=== PATIENT | female | born 1995 | race Caucasian/White ===

== ENCOUNTER 2020-02-04 15:23 | Emergency (ER) | payer OTHER ==
[2020-02-04 16:19] LABS: Basophils % 0.4 % (0-1.3); Hematocrit 36.3 % (36.0-45.0); Lymphocytes % 34.7 % (15.3-44.8); MPV 7.3 fL (7.6-11.3); RBC Red Blood Cell Count 4.43 M/uL (3.86-4.86)
--- NOTE | 2020-02-04 16:20 | RAD REPORT ---
EXAM DESCRIPTION: RAD - Chest Single View - 02/04/2020 3:58 pm CLINICAL HISTORY: Palpitations;Chest pain TECHNIQUE: AP portable chest image was obtained 02/04/2020 3:58 pm . FINDINGS: Lungs are clear. Heart and vasculature are normal. No measurable pleural effusion and no p neumothorax. No acute bony abnormality seen. No acute aortic findings suspected. IMPRESSION: No acute cardiopulmonary process.
[2020-02-04 16:22] LABS: Protime INR 1.04
[2020-02-04 16:56] LABS: Barbiturates NEGATIVE (NEGATIVE); Benzodiazepines NEGATIVE (NEGATIVE); Cocaine NEGATIVE (NEGATIVE); METHAMPHETAM NEGATIVE (NEGATIVE); Methadone NEGATIVE (NEGATIVE); Opiates NEGATIVE (NEGATIVE); Phencyclidine NEGATIVE (NEGATIVE); THC Cannibis NEGATIVE (NEGATIVE)
[2020-02-04 17:05] LABS: ALT/SGPT 43 U/L (12-78); AST/SGOT 24 U/L (15-37); Albumin 3.4 g/dL (3.4-5.0); Alkaline Phosphatase 63 U/L (45-117); BUN Blood Urea Nitrogen 5 mg/dL (7-18); Bicarbonate 27 mmol/L (21-32); Bilirubin Direct 0.1 mg/dL (0-0.2); Bilirubin Total 0.3 mg/dL (0.2-1.0); Glucose Level 105 mg/dL (74-106); Magnesium 1.8 mg/dL (1.8-2.4); NT PRO-BNP 450 pg/mL (<125); Potassium 3.9 mmol/L (3.5-5.1); Protein, Total 6.8 g/dL (6.4-8.2); Sodium Level 140 mmol/L (136-145); Troponin (Emerg Dept Use Only) < 0.02 ng/mL (0.0-0.045)
[2020-02-04 17:26] LABS: Thyroid Stimulating Hormone < 0.005 uIU/mL (0.360-3.740)
--- NOTE | 2020-02-04 17:49 | ER ---
Nurse's Notes [facility] Name: Mayra Talamantes Age: 24 yrs Sex: Female : 1995 Arrival Date: 02/04/2020 Time: 15:24 Bed 16 Private MD: Diagnosis: Palpitations;Hyperthyroidism;Chest pain, unspecified Presentation: 02/03 15:27 Chief complaint: Patient states: palpitations x 1 month, Today while at work felt like sv she was running a mile while running up and down the stairs. Coronavirus screen: Client denies travel out of the [place] in the last 14 days. At this time, the client does not indicate any symptoms associated with coronavirus-19. Ebola Screen: No symptoms or risks identified at this time. Risk Assessment: Do you want to hurt yourself or someone else? Patient reports no desire to harm self or others. Onset of symptoms is unknown. 15:27 Method Of Arrival: Ambulatory sv 15:27 Acuity: SHERRI 2 sv 15:30 Initial Sepsis Screen: Does the patient meet any 2 criteria? HR > 90 bpm. Yes Does the sv patient have a suspected source of infection? No. Patient's initial sepsis screen is negative. 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 - Social history:: Smoking status: Reported history of juuling and/or vaping. Screenin:42 Abuse screen: Denies threats or abuse. Denies injuries from another. Nutritional ph screening: No deficits noted. Tuberculosis screening: No symptoms or risk factors identified. Fall Risk None identified. Assessment: 16:10 General: Appears in no apparent distress. comfortable, slender, well groomed, Behavior ph is calm, cooperative, appropriate for age, Denies fever, feeling ill. Pain: Denies pain. Neuro: Level of Consciousness is awake, alert, obeys commands, Oriented to person, place, time, situation. Cardiovascular: Reports chest pain, lightheadedness, palpitations, shortness of breath, since Intermittent x approx 1 month, denies pain at this time Denies diaphoresis, syncope, vomiting, Rhythm is regular. Respiratory: Reports shortness of breath on exertion Airway is patent Respiratory effort is even, unlabored, Respiratory pattern is regular, symmetrical. GI: No signs and/or symptoms were reported involving the gastrointestinal system. Derm: Skin is intact, is healthy with good turgor, Skin is pink, warm \T\ dry. Musculoskeletal: Circulation, motion, and sensation intact. Range of motion: intact in all extremities. 17:30 Reassessment: Patient appears in no apparent distress at this time. Patient and/or ph family updated on plan of care and expected duration. Pain level reassessed. Patient is alert, oriented x 3, equal unlabored respirations, skin warm/dry/pink. ERP at bedside to speak w/ pt and familly about results. Vital Signs: 15:30 BP 132 / 86; Pulse 100; Resp 16; Temp 98.7; Pulse Ox 100% ; Weight 49.9 kg; Height 5 sv ft. 7 in. (170.18 cm); 16:41 BP 134 / 82; Pulse 88; Resp 18; Pulse Ox 100% on R/A; ph 17:30 BP 133 / 74; Pulse 93; Resp 18; Pulse Ox 100% on R/A; ph 15:30 Body Mass Index 17.23 (49.90 kg, 170.18 cm) sv Vitals: 16:41 Cardiac Rhythm Assessment Sinus rhythm. ph ED Course: 15:24 Patient arrived in ED. ds1 15:27 Arm band placed on. sv 15:29 Triage completed. sv 15:33 Dorian Goldstein NP is PHCP. pm1 15:33 Abelardo Grimes MD is Attending Physician. pm1 15:45 EKG done, by ED staff, reviewed by Dorian Goldstein NP. dh3 15:58 XRAY Chest (1 view) In Process Unspecified. EDMS 16:02 Blanka Valverde, LAKIA is Primary Nurse. ph 16:02 Initial lab(s) drawn, by pr, sent to lab. Inserted saline lock: 22 gauge in left dh3 antecubital area, using aseptic technique. Blood collected. 16:33 Urine collected: clean catch specimen, clear. dh3 16:42 Patient has correct armband on for positive identification. Placed in gown. Bed in low ph position. Call light in reach. Side rails up X 1. alarm security or surveillance monitor on. Pulse ox on. NIBP on. Door closed. Noise minimized. 16:42 Patient maintains SpO2 saturation greater than 95% on room air. ph 18:12 No provider procedures requiring assistance completed. IV discontinued, intact, ph bleeding controlled, No redness/swelling at site. Pressure dressing applied. Administered Medications: No medications were administered Outcome: 17:48 Discharge ordered by MD. pm1 18:12 Discharged to home ambulatory. ph 18:12 Condition: good 18:12 Discharge instructions given to patient, family, Instructed on discharge instructions, follow up and referral plans. medication usage, Demonstrated understanding of instructions, follow-up care, medications, Prescriptions given X 1. 18:12 Patient left the ED. ph Signatures: Dispatcher [employer] EDMelvina Xie RN RN Leidy Keys ds1 Blanka Valverde RN RN Dorian Goldstein, RN SPINE RN SPINE pm1 Princess Velázquez 3 Corrections: (The following items were deleted from the chart) 15:32 15:27 Acuity: SHERRI 3 sv sv 15:32 15:30 Pulse 100bpm; Resp 16bpm; Pulse Ox 100%; Temp 98.7F; 49.9 kg; Height 5 ft. 7 in.; sv BMI: 17.2; sv
--- NOTE | 2020-02-04 17:49 | EDPHYS ---
Physician Documentation [facility] Name: Mayra Talamantes Age: 24 yrs Sex: Female : 1995 Arrival Date: 02/04/2020 Time: 15:24 Bed 16 Private MD: ED Physician Abelardo Grimes HPI: 02/03 15:53 This 24 yrs old Female presents to ER via Ambulatory with complaints of Chest pm1 Pain. 15:53 The patient presents with a history of irregular heart beat, heart racing. Context: The pm1 symptoms occur after light activity, walking down stairs at work. Onset: The symptoms/episode began/occurred today. Duration: The patient or guardian reports a single episode, that is now resolved. Associated signs and symptoms: Pertinent positives: chest pain, Pertinent negatives: fever, SOB. Severity of symptoms: in the emergency department the symptoms have resolved Pain is currently a 0 / 10. The patient has experienced similar episodes in the past, a few times. The patient has not recently seen a physician. 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 - Social history:: Smoking status: Reported history of juuling and/or vaping. ROS: 15:53 Constitutional: Negative for fever, chills, and weight loss. pm1 15:53 Respiratory: Negative for shortness of breath, cough, wheezing, and pleuritic chest pain, Abdomen/GI: Negative for abdominal pain, nausea, vomiting, diarrhea, and constipation, Back: Negative for injury and pain, MS/Extremity: Negative for injury and deformity, Skin: Negative for injury, rash, and discoloration, Neuro: Negative for headache, weakness, numbness, tingling, and seizure. 15:53 Cardiovascular: Positive for chest pain, palpitations, Negative for edema, orthopnea. Exam: 15:53 Constitutional: This is a well developed, well nourished patient who is awake, alert, pm1 and in no acute distress. Head/Face: Normocephalic, atraumatic. Eyes: Pupils equal round and reactive to light, extra-ocular motions intact. Lids and lashes normal. Conjunctiva and sclera are non-icteric and not injected. Cornea within normal limits. Periorbital areas with no swelling, redness, or edema. 15:53 Chest/axilla: Normal chest wall appearance and motion. Nontender with no deformity. No lesions are appreciated. Cardiovascular: Regular rate and rhythm with a normal S1 and S2. No gallops, murmurs, or rubs. Normal PMI, no JVD. No pulse deficits. Respiratory: Lungs have equal breath sounds bilaterally, clear to auscultation and percussion. No rales, rhonchi or wheezes noted. No increased work of breathing, no retractions or nasal flaring. Back: No spinal tenderness. No costovertebral tenderness. Full range of motion. Skin: Warm, dry with normal turgor. Normal color with no rashes, no lesions, and no evidence of cellulitis. MS/ Extremity: Pulses equal, no cyanosis. Neurovascular intact. Full, normal range of motion. 15:53 Neck: Thyroid: enlargement, that is mild, ROM/movement: is normal, is supple. 15:53 Neuro: Exam negative for acute changes, Orientation: is normal, Mentation: is normal, Motor: is normal, moves all fours. Vital Signs: 15:30 BP 132 / 86; Pulse 100; Resp 16; Temp 98.7; Pulse Ox 100% ; Weight 49.9 kg; Height 5 sv ft. 7 in. (170.18 cm); 16:41 BP 134 / 82; Pulse 88; Resp 18; Pulse Ox 100% on R/A; ph 17:30 BP 133 / 74; Pulse 93; Resp 18; Pulse Ox 100% on R/A; ph 15:30 Body Mass Index 17.23 (49.90 kg, 170.18 cm) sv MDM: 15:33 Patient medically screened. pm1 17:47 Data reviewed: vital signs. Data interpreted: Pulse oximetry: on room air is 100 %. pm1 Interpretation: normal. Counseling: I had a detailed discussion with the patient and/or guardian regarding: the historical points, exam findings, and any diagnostic results supporting the discharge/admit diagnosis, lab results, radiology results, the need for outpatient follow up, for definitive care, Endocrinology, to return to the emergency department if symptoms worsen or persist or if there are any questions or concerns that arise at home. 02/03 15:47 Order name: Basic Metabolic Panel; Complete Time: 17:28 pm1 02/03 15:47 Order name: CBC with Diff; Complete Time: 16:29 pm1 02/03 15:47 Order name: LFT's; Complete Time: 17:28 pm1 02/03 15:47 Order name: Magnesium; Complete Time: 17:28 pm1 02/03 15:47 Order name: NT PRO-BNP; Complete Time: 17:28 pm1 02/03 15:47 Order name: PT-INR; Complete Time: 16:54 pm1 02/03 15:47 Order name: Troponin (emerg Dept Use Only); Complete Time: 17:28 pm1 02/03 15:47 Order name: XRAY Chest (1 view); Complete Time: 16:29 pm1 02/03 15:47 Order name: EKG; Complete Time: 15:48 pm1 02/03 15:47 Order name: TSH; Complete Time: 17:28 pm1 02/03 15:47 Order name: D-Dimer; Complete Time: 16:54 pm1 02/03 15:50 Order name: UDS; Complete Time: 16:58 pm1 02/03 16:44 Order name: Urine Dipstick--Ancillary (enter results) bd 02/03 16:44 Order name: Urine --Ancillary (enter results) bd 02/03 15:47 Order name: Cardiac monitoring; Complete Time: 16:06 pm1 02/03 15:47 Order name: EKG - Nurse/Tech; Complete Time: 16:06 pm1 02/03 15:47 Order name: IV Saline Lock; Complete Time: 16:06 pm1 02/03 15:47 Order name: Labs collected and sent; Complete Time: 16:06 pm1 02/03 15:47 Order name: O2 Per Protocol; Complete Time: 16:06 pm1 02/03 15:47 Order name: O2 Sat Monitoring; Complete Time: 16:06 pm1 02/03 15:47 Order name: Urine Dipstick-Ancillary (obtain specimen); Complete Time: 16:32 pm1 02/03 15:47 Order name: Urine Test (obtain specimen); Complete Time: 16:32 pm1 Administered Medications: No medications were administered Disposition: 02/04 06:28 Co-signature as Attending Physician, Abelardo Grimes MD I agree with the assessment and frida plan of care. Disposition: 02/04/20 17:48 Discharged to Home. Impression: Hyperthyroidism, Palpitations, Chest pain, unspecified. - Condition is Stable. - Discharge Instructions: Nonspecific Chest Pain, Hyperthyroidism, Palpitations. - Prescriptions for Inderal LA 80 mg Oral capsule,extended release 24 hr - take 1 capsule by ORAL route once daily; 20 capsule. - Medication Reconciliation Form, Thank You Letter, Antibiotic Education, Prescription Opioid Use form. - Follow up: Emergency Department; When: As needed; Reason: Worsening of condition. Follow up: Private Physician; When: 2 - 3 days; Reason: Recheck today's complaints, Continuance of care, Re-evaluation by your physician. - Problem is new. - Symptoms have improved. Signatures: Dispatcher [employer] EDMelvina Xie, RN Abelardo London MD MD cha Hall, Patricia RN RN Dorian Roper, HR ADMINISTRATOR HR ADMINISTRATOR pm1 Corrections: (The following items were deleted from the chart) 02/03 18:12 17:48 02/04/2020 17:48 Discharged to Home. Impression: HyperthyroidismPalpitations; ph Chest pain, unspecified. Condition is Stable. Forms are Medication Reconciliation Form, Thank You Letter, Antibiotic Education, Prescription Opioid Use. Follow up: Emergency Department; When: As needed; Reason: Worsening of condition. Follow up: Private Physician; When: 2 - 3 days; Reason: Recheck today's complaints, Continuance of care, Re-evaluation by your physician. Problem is new. Symptoms have improved. pm1
[2020-02-04 18:18] VITALS: TEMP 98.7; O2SAT 100
[2020-02-04 18:21] VITALS: BP 133/74
[2020-02-04 18:50] LABS: Urine Blood NEGATIVE (NEG); Urine Glucose NEGATIVE (NEG); Urine Protein NEGATIVE (NEG); Urine Specific Gravity 1.025 (1.005-1.030); Urine pH 5.5 (5.0-7.0)
--- NOTE | 2020-02-06 07:19 | EKG ---
Test Date: 2020-02-04 Test Time: 15:42:59 [place]: JACE MEASUREMENT RESULTS: Intervals: Rate: 83 WA: 128 QRSD: 84 QT: 366 QTc: 430 [place]: P: 41 WA: 128 QRS: 59 T: 45 INTERPRETIVE STATEMENTS: Normal sinus rhythm Normal ECG No previous ECG available for comparison Electronically Signed On 02-06-20 07:16:25 RN REGISTRY by Bg Irby
== END 2020-02-04 18:12 | disposition home or self-care (01) ==
LOC: ER 15:23
DX: E05.90 Thyrotoxicosis, unspecified without thyrotoxic crisis or storm (principal); R00.2 Palpitations; Z87.891 Personal history of nicotine dependence
CPT/HCPCS: 36415; 71045; 80048; 80076; 80307; 81003; 81025; 83735; 83880; 84443; 84484; 85025; 85379; 85610; 93005; 99285